=== PATIENT | female | born 1995 | race African-American/Black ===

== ENCOUNTER → 2019-08-26 | Outpatient (CLI) | payer MEDICAID ==
--- NOTE | 2019-08-26 16:30 | RAD ---
OB ultrasound study dated 14 weeks Clinical indications: Uncertain dates. Evaluation for size and dates. COMPARISON: None available. Findings: A single intrauterine fetus is seen in variable position. heart rate is 147 beats per minute. BPD is 4.91 cm which equals 20 weeks 6 days. HC is 19.81 cm which equals 22 weeks 0 days. AC is 18.06 cm which equals 22 weeks 6 days. FL is 4.01 cm which equals 23 weeks 0 days. Average gestational age by ultrasound is 22 weeks 1 day +/- 12 days with an EDC of December 29, 2019. Estimated weight is 1 lbs and 3 oz. anatomy is poorly visualized due to maternal body habitus. A three-vessel cord is identified. Four-chamber heart is difficult to visualize. heart beat is seen. stomach and urinary bladder are identified. kidneys are difficult to visualize. Cord insertion site is difficult to visualize. The intracranial structures are morphologically normal in appearance. The ventricular trigone measurement is less than 10 mm. Cisterna magna measurement is less than 10 mm. spine is difficult to visualize Nasal labial area is difficult to visualize. JUAN MANUEL using the four quadrant method is 16 cm. Cervical length is 3.1 cm. A grade 0 posterior placenta is seen. No placenta previa and no placenta abruptio is identified. The maternal ovaries are not visualized. IMPRESSION: Single IUP with approximate gestational age of 22 weeks. heart rate is 147 bpm. anatomy is difficult to visualize due to maternal body habitus. Electronically signed by: Lui sEnrique Lorenzo MD (08/26/2019 4:27 PM) [id number]
== END | disposition home or self-care (01) ==
LOC: US 12:24
PROVIDERS: ATTEND Obstetrics & Gynecology
DX: O26.842 Uterine size-date discrepancy, second trimester (principal); Z3A.22 22 weeks gestation of pregnancy
CPT/HCPCS: 76805

== ENCOUNTER 2019-09-07 19:27 | Observation (INO) | payer MEDICAID ==
[2019-09-07] MEDS ORDERED: IV RINGERS,LACTATED 1000ML 1,000 ML IV SCH (19:29)
[2019-09-07 20:03] LABS: BILIRUBIN,URINE NEGATIVE (NEG); CLARITY,URINE CLEAR; COLOR,URINE YELLOW; NITRITE,URINE NEGATIVE (NEG); PROTEIN,URINE NEGATIVE (NEG-TRACE)
[2019-09-07 20:08] LABS: BACTERIA,URINE MANY /HPF (0-FEW); SQUAMOUS EPITHELIAL CELL,UR MANY /LPF
[2019-09-07 20:09] LABS: BARBITURATES NEG (NEG); BENZODIAZEPINES NEG (NEG); CANNABINOIDS NEG (NEG); COCAINE NEG (NEG); METHADONE NEG (NEG); OPIATES NEG (NEG); PHENCYCLIDINE NEG (NEG); RBC,URINE 0 /HPF (0-2)
[2019-09-07 20:10] LABS: AMPHETAMINE/METHAMPHETAMINE NEG (NEG)
[2019-09-07] MEDS ORDERED: ACETAMINOPHEN 500 MG TABLET PO ONE (21:00)
== END 2019-09-07 20:50 | disposition home or self-care (01) ==
LOC: 3 SO LND 19:27
PROVIDERS: ADMIT Obstetrics & Gynecology; ATTEND Obstetrics & Gynecology
DX: O26.892 Other specified pregnancy related conditions, second trimester (principal); M79.604 Pain in right leg; R07.89 Other chest pain; R10.9 Unspecified abdominal pain; Z3A.20 20 weeks gestation of pregnancy
CPT/HCPCS: 80307; 81001; 87086; G0378; G0379

== ENCOUNTER 2019-10-24 12:57 | Observation (INO) | payer MEDICAID ==
[2019-10-24] MEDS ORDERED: IV RINGERS,LACTATED 1000ML 1,000 ML IV SCH (14:15)
== END 2019-10-24 14:26 | disposition home or self-care (01) ==
LOC: 3 SO LND 12:57
PROVIDERS: ADMIT Obstetrics & Gynecology; ATTEND Obstetrics & Gynecology
DX: O36.8130 Decreased fetal movements, third trimester, not applicable or unspecified (principal); Z3A.31 31 weeks gestation of pregnancy
CPT/HCPCS: G0378; G0379